=== PATIENT | male | born 1985 | race Caucasian/White ===

== ENCOUNTER 2020-05-29 21:39 | Observation (INO) ==
[2020-05-30] MEDS ORDERED: *HR* Heparin 5,000 UNIT/ML VIAL IVP PRN ×2 (02:57)
[2020-05-30] MEDS ORDERED: Naloxone 0.4 MG/ML INJ IVP PRN (03:03)
[2020-05-30] MEDS ORDERED: Ondansetron 4 MG/2 ML VIAL IVP PRN (03:03)
[2020-05-30] MEDS ORDERED: D5% in Water 1,000 ML IVC PRN (03:13)
[2020-05-30] MEDS ORDERED: *HR* Dextrose 50 % in Water (Vial) 50 ML VIAL IVP PRN (03:13)
[2020-05-30] MEDS ORDERED: Dextrose Gel 15 GM/37.5 ML TUBE PO PRN ×2 (03:13)
[2020-05-30] MEDS ORDERED: Perflutren Lipid Microsphere 1.3 ML in 0.9 % Sodium Chloride 8.7 ML IVP PRN (03:20)
[2020-05-30 04:06] LABS: ABG Base Excess 5 mEq/L (-2 to 3); ABG HCO3 31 mEq/L (21-27); ABG Oxygen Saturation 95 % (95-98); ABG PCO2 51 mmHg (35-45); ABG PH 7.39 pH Units (7.32-7.45); ABG PO2 80 mmHg (85-104); ABG TCO2 33 mEq/L (20-26)
[2020-05-30 04:32] LABS: Basophils % 0.4 %; Eosinophils # 0.3 K/mcL (0.0-0.6); Hematocrit 40.4 % (37.5-50.1); Hemoglobin 12.5 g/dL (12.9-16.9); Immature Granulocytes % 0.8 % (0-4); Lymphocytes # 1.2 K/mcL (0.6-4.6); Lymphocytes % 14.1 %; Mean Corpuscular HGB Conc 30.9 g/dL (31.6-35.5); Mean Corpuscular Hemoglobin 26.7 pg (28.0-33.3); Mean Corpuscular Volume 86.1 fL (83.0-100.0); Mean Platelet Volume 9.7 fL (9.4-12.4); Monocytes # 0.5 K/mcL (0.0-1.3); Monocytes % 6.3 %; Neutrophils # 6.4 K/mcL (1.6-8.9); Platelet Count 256 K/mcL (140-400); Red Blood Count 4.69 M/mcL (4.19-5.50); Red Cell Distribution Width 15.3 % (11.5-14.5); Segmented Neutrophils % 75.4 %; White Blood Count 8.5 K/mcL (4.3-11.1)
[2020-05-30 04:45] LABS: INR 1.1; Prothrombin Time 12.9 Seconds (9.4-12.1)
[2020-05-30 04:47] LABS: Activated Partial Thrombo Time 55.2 Seconds (26.0-36.0)
[2020-05-30 04:51] LABS: Estimated Average Glucose 214 mg/dl; Hemoglobin A1C 9.1 %
[2020-05-30 04:53] LABS: Alanine Aminotransferase 32 Units/L (7-52); Albumin 3.6 g/dL (3.5-5.7); Albumin/Globulin Ratio 1.1 (1.1-2.2); Alkaline Phosphatase 138 Units/L (34-104); Aspartate Amino Transferase 20 Units/L (13-39); BUN/Creatinine Ratio 18 (6-26); Bilirubin,Direct 0.1 mg/dL (0.0-0.2); Bilirubin,Indirect 0.3 mg/dL (0.0-1.0); Bilirubin,Total 0.4 mg/dL (0.3-1.0); Blood Urea Nitrogen 13 mg/dL (6-20); Calcium 9.3 mg/dL (8.6-10.3); Carbon Dioxide 30 mEq/L (23-29); Chloride 98 mEq/L (98-107); Cholesterol 156 mg/dL (< 200); Globulin 3.2 g/dL (2.4-3.5); Glucose 237 mg/dL (70-105); HDL Cholesterol 31 mg/dL (40-59); LDL Cholesterol,Calculated 68 mg/dL (< 100); Magnesium 1.7 mg/dL (1.6-2.6); Osmolality,Calculated 292 (280-300); Potassium 3.8 mEq/L (3.5-5.1); Sodium 137 mEq/L (136-145); Total Protein 6.8 g/dL (6.4-8.9); Triglycerides 286 mg/dL (< 150); Troponin I 0.03 ng/mL (< 0.04); eGFR For African Americans > 60 (> 60); eGFR For Non-African Americans > 60 (> 60)
[2020-05-30 04:59] LABS: Heparin anti-factor XA UFH 1.02 IU/mL (0.30-0.70)
[2020-05-30 05:06] LABS: Thyroid Stimulating Hormone 2.495 mcIU/mL (0.340-5.600)
[2020-05-30] MEDS: Heparin 25,000UNIT/250ML 1/2NS 25,000 UNIT/250 ML IV.SOLN IVC SCH ×2 (06:30→20:00)
[2020-05-30 06:41] LABS: Hepatitis B Surface Antigen Nonreactive (Nonreactive)
[2020-05-30 07:10] LABS: Hepatitis A Antibody IgM Nonreactive (Nonreactive)
[2020-05-30] MEDS: Famotidine 20 MG/2 ML VIAL IVP SCH ×2 (07:13→17:42)
[2020-05-30 08:26] LABS: Hepatitis B Core IgM Reactive (Nonreactive)
[2020-05-30] MEDS: Insulin LISPRO 300 UNITS/3 ML VIAL SUBQ SCH ×3 (08:46→17:42)
[2020-05-30] MEDS: Furosemide 40 MG/4 ML VIAL IVP SCH ×2 (08:46→20:52)
[2020-05-30] MEDS: Cholecalciferol (D-3) 1,000 UNIT (25MCG) TABLET PO SCH (08:46)
[2020-05-30] MEDS: hydroCHLOROthiazide 25 MG TABLET PO SCH (08:46)
[2020-05-30] MEDS: Multivit/Ca/Min/Fe/FA 1 TAB TABLET PO SCH (08:47)
[2020-05-30] MEDS: Folic Acid 1 MG TABLET PO SCH (08:47)
[2020-05-30] MEDS: BuPROPion XL (24 HR) 150 MG TABLET PO SCH (08:47)
[2020-05-30] MEDS ORDERED: (Suboxone 8 Mg-2 Mg SL) SL SCH (09:00)
[2020-05-30 11:59] LABS: Hepatitis C Virus Antibody Reactive (Nonreactive)
[2020-05-30] MEDS ORDERED: Insulin LISPRO 300 UNITS/3 ML VIAL SUBQ SCH (21:00)
[2020-05-30] MEDS: (Suboxone 8 Mg-2 Mg SL) SL SCH (23:56)
[2020-05-31 01:18] LABS: Hematocrit 41.7 % (37.5-50.1); Hemoglobin 12.7 g/dL (12.9-16.9); Mean Corpuscular HGB Conc 30.5 g/dL (31.6-35.5); Mean Corpuscular Hemoglobin 26.1 pg (28.0-33.3); Mean Corpuscular Volume 85.6 fL (83.0-100.0); Mean Platelet Volume 9.5 fL (9.4-12.4); Platelet Count 281 K/mcL (140-400); Red Blood Count 4.87 M/mcL (4.19-5.50); Red Cell Distribution Width 15.4 % (11.5-14.5)
[2020-05-31 01:45] LABS: Blood Urea Nitrogen 16 mg/dL (6-20); Carbon Dioxide 33 mEq/L (23-29); Chloride 95 mEq/L (98-107); Potassium 4.2 mEq/L (3.5-5.1); Sodium 136 mEq/L (136-145)
[2020-05-31 01:46] LABS: BUN/Creatinine Ratio 19 (6-26); Calcium 9.7 mg/dL (8.6-10.3); Glucose 238 mg/dL (70-105); Osmolality,Calculated 291 (280-300); eGFR For African Americans > 60 (> 60); eGFR For Non-African Americans > 60 (> 60)
[2020-05-31] MEDS: Famotidine 20 MG/2 ML VIAL IVP SCH (06:05)
[2020-05-31] MEDS: Cholecalciferol (D-3) 1,000 UNIT (25MCG) TABLET PO SCH (09:31)
[2020-05-31] MEDS: Multivit/Ca/Min/Fe/FA 1 TAB TABLET PO SCH (09:31)
[2020-05-31] MEDS: BuPROPion XL (24 HR) 150 MG TABLET PO SCH (09:31)
[2020-05-31] MEDS: hydroCHLOROthiazide 25 MG TABLET PO SCH (09:31)
[2020-05-31] MEDS: Folic Acid 1 MG TABLET PO SCH (09:31)
[2020-05-31] MEDS: Insulin LISPRO 300 UNITS/3 ML VIAL SUBQ SCH ×2 (09:32→13:12)
[2020-05-31] MEDS: Furosemide 40 MG/4 ML VIAL IVP SCH (09:32)
[2020-05-31 10:43] VITALS: BP 145/80
[2020-05-31] MEDS: (Suboxone 8 Mg-2 Mg SL) SL SCH (13:36)
== END 2020-05-31 16:53 | disposition home or self-care (01) ==
LOC: 3NENU → SUATTDRO 23:58
PROVIDERS: ADMIT Student in an Organized Health Care Education/Training Program; ATTEND Internal Medicine